=== PATIENT | male | born 2000 | race Caucasian/White ===

== ENCOUNTER 2021-06-26 18:09 | Emergency (ER) | payer BC, OTHER ==
[~2021-06-26 18:09] MED LIST: BACTRIM DS TAB1 EACH PO; BACTROBAN OINT22 GM EXT; IBUPROFEN600 MG PO; KEFLEX CAP 500500 MG PO
[2021-06-26] MEDS ORDERED: IBUPROFEN600 MG PO (19:52)
== END 2021-06-26 20:00 | disposition home or self-care (01) ==
LOC: ER1 18:09
DX: S60.222A Contusion of left hand, initial encounter (principal); I25.2 Old myocardial infarction; F17.200 Nicotine dependence, unspecified, uncomplicated; X58.XXXA Exposure to other specified factors, initial encounter
CPT/HCPCS: 73130; 99283